=== PATIENT | female | born 1980 | race Two or more races ===

== ENCOUNTER 2017-11-10 19:42 | Emergency (ER) | payer OTHER ==
[~2017-11-10] VITALS: Ht 177.8 cm; Wt 63.0 kg
[2017-11-10] MEDS ORDERED: ONDANSETRON 2MG/ML, 2ML IVPush ONE (20:30)
[2017-11-10] MEDS ORDERED: SODIUM CHLORIDE 0.9% 1,000ML IVBOLUS ONE (20:30)
[2017-11-10 20:52] LABS: ASPARTATE AMINO TRANSFERASE 14 U/L (15-37); BLOOD UREA NITROGEN 9 mg/dL (7-18)
[2017-11-10] MEDS ORDERED: ONDANSETRON 2MG/ML, 2ML ONE (20:55)
[2017-11-10 21:03] LABS: HEMATOCRIT 41.4 % (34.6-47.8); HEMOGLOBIN 13.7 g/dL (11.7-16.4); WHITE BLOOD COUNT 4.2 x10^3/uL (3.4-10)
[2017-11-10 21:05] LABS: DIFF TOTAL CELLS COUNTED 100 CELL DIFF
[2017-11-10 21:10] LABS: VERIFY COUNTS? YES
[2017-11-10 21:11] LABS: LARGE PLATELETS 1+
[2017-11-10] MEDS ORDERED: PROMETHAZINE 25 MG/ML, 1ML IM ONE (21:30)
[2017-11-10] MEDS ORDERED: PLEASE ENTER ALLERGIES MC SCH ×2 (21:30)
[2017-11-10] MEDS ORDERED: PROMETHAZINE 25 MG/ML, 1ML ONE (21:31)
[2017-11-10 21:51] VITALS: BP 115/76
== END 2017-11-10 22:17 | disposition home or self-care (01) ==
LOC: ED 21:07
DX: R11.2 Nausea with vomiting, unspecified (principal); R19.7 Diarrhea, unspecified; E86.0 Dehydration
CPT/HCPCS: 36415; 80053; 83690; 84703; 85025; 96361; 96372; 96374; 99284; J2405; J2550; J7030